=== PATIENT | female | born 1935 | race Two or more races ===

== ENCOUNTER 2017-06-12 13:04 | Emergency (ER) | payer OTHER ==
[~2017-06-12] VITALS: Ht 157.5 cm; Wt 66.2 kg
[~2017-06-12 13:04] MED LIST: CARDIZEM CD240 MG PO; INTESTINEX1 CA1 PO; LEVSIN/SL0.125 MG SL; MACROBID 100 M100 MG PO; PEPCID20 MG PO; PREMARIN42.5 G1 VG; SYNTHROID112 MCG PO; TRENTAL
[2017-06-12] MEDS ORDERED: COZAAR50 MG (13:57)
[2017-06-12] MEDS ORDERED: ZANTAC150 M3 (13:57)
== END 2017-06-12 17:19 | disposition home or self-care (01) ==
LOC: ER 13:04
DX: N39.0 Urinary tract infection, site not specified (principal)

== ENCOUNTER 2018-04-29 14:46 | Emergency (ER) | payer OTHER ==
[~2018-04-29] VITALS: Ht 157.5 cm; Wt 68.9 kg
[~2018-04-29 14:46] MED LIST changes: +COZAAR50 MG; +ZANTAC150 M3
== END 2018-04-29 18:17 | disposition home or self-care (01) ==
LOC: ER 14:46
DX: S00.03XA Contusion of scalp, initial encounter (principal); W18.09XA Striking against other object with subsequent fall, initial encounter; Y93.89 Activity, other specified; Y92.018 Other place in single-family (private) house as the place of occurrence of the external cause; Y99.8 Other external cause status

== ENCOUNTER 2018-05-16 13:43 | Emergency (ER) | payer OTHER ==
[~2018-05-16] VITALS: Ht 162.6 cm; Wt 63.5 kg
[2018-05-17] MEDS ORDERED: INTESTINEX680 M1 PO (02:01)
[2018-05-17] MEDS ORDERED: LEVSIN/SL0.125 MG SL (02:01)
== END 2018-05-17 02:12 | disposition home or self-care (01) ==
LOC: ER 13:43
DX: K52.89 Other specified noninfective gastroenteritis and colitis (principal)

== ENCOUNTER 2018-10-27 19:25 | Emergency (ER) | payer OTHER ==
[~2018-10-27] VITALS: Ht 152.4 cm; Wt 62.6 kg
[~2018-10-27 19:25] MED LIST changes: +INTESTINEX680 M1 PO
[2018-10-27] MEDS ORDERED: CLARITIN10 M1 PO (22:22)
== END 2018-10-27 22:51 | disposition home or self-care (01) ==
LOC: ER 19:25
DX: R06.02 Shortness of breath (principal)

== ENCOUNTER 2021-09-01 16:08 | Emergency (ER) | payer OTHER ==
[~2021-09-01] VITALS: Ht 149.9 cm; Wt 59.0 kg
[~2021-09-01 16:08] MED LIST changes: +CLARITIN10 M1 PO
== END 2021-09-01 22:24 | disposition left against medical advice (07) ==
LOC: ER 16:08
DX: U07.1 COVID-19 (principal); Z88.0 Allergy status to penicillin; Z88.2 Allergy status to sulfonamides

== ENCOUNTER 2021-09-14 17:36 | Emergency (ER) | payer OTHER ==
[~2021-09-14] VITALS: Ht 149.9 cm; Wt 59.0 kg
== END 2021-09-15 01:44 | disposition home or self-care (01) ==
LOC: ER 17:36
DX: M62.830 Muscle spasm of back (principal)

== ENCOUNTER 2022-08-27 17:08 | Emergency (ER) | payer OTHER ==
[~2022-08-27] VITALS: Ht 147.3 cm; Wt 55.3 kg
[2022-08-27] MEDS ORDERED: DICY20TA PO (20:33)
[2022-08-27] MEDS ORDERED: CIPRO500 MG PO (20:33)
[2022-08-27] MEDS ORDERED: PEPCID AC20 MG PO (20:33)
== END 2022-08-27 20:48 | disposition home or self-care (01) ==
LOC: ER 17:08
DX: R10.84 Generalized abdominal pain (principal); Z88.0 Allergy status to penicillin; Z88.2 Allergy status to sulfonamides; I10 Essential (primary) hypertension; E03.9 Hypothyroidism, unspecified; K57.92 Diverticulitis of intestine, part unspecified, without perforation or abscess without bleeding

== ENCOUNTER 2023-08-12 08:18 | Emergency (ER) | payer OTHER ==
[~2023-08-12] VITALS: Ht 157.5 cm; Wt 50.8 kg
[~2023-08-12 08:18] MED LIST changes: +CIPRO500 MG PO; +DICY20TA PO; +PEPCID AC20 MG PO
[2023-08-12] MEDS ORDERED: 0.9 % SODIUM CHLORIDE 500 ML IV STA (08:52)
[2023-08-12 09:25] LABS: HEMATOCRIT 39.4 % (36.0-45.00); HEMOGLOBIN 13.5 g/dL (12.0-15.00); MEAN CELL VOLUME 94.5 fL (80.00-100.00); MEAN CORPUSCULAR HEMOGLOBIN 32.4 pg (27.00-32.0); MEAN CORPUSCULAR HGB CONC 34.3 g/dl (32.0-36.0); PLATELET COUNT 224 K/uL (150-450); RED BLOOD COUNT 4.17 M/uL (4.00-6.00); RED CELL DISTRIBUTION WIDTH 13.9 % (11.5-14.5)
[2023-08-12 10:24] LABS: URINE APPEARANCE Cloudy; URINE BILIRRUBIN Small (NEGATIVE); URINE BLOOD Moderate; URINE COLOR Dark Yellow; URINE GLUCOSE Negative (NEGATIVE); URINE LEUKOCYTE Moderate; URINE NITRATE Negative; URINE PROTEIN 30 (NEGATIVE)
[2023-08-12 10:29] LABS: URINE BACTERIA 728.2 uL (0.0-1933); URINE RBC 161.2 uL (0.0-20.8); URINE WBC 138.2 uL (0.0-23.2)
[2023-08-12 10:55] LABS: URINE MUCUS HEAVY
== END 2023-08-12 14:47 | disposition home or self-care (01) ==
LOC: ER 08:19
PROVIDERS: General Practice
DX: R10.9 Unspecified abdominal pain (principal); M19.90 Unspecified osteoarthritis, unspecified site; Z88.2 Allergy status to sulfonamides; Z88.0 Allergy status to penicillin; N39.0 Urinary tract infection, site not specified
CPT/HCPCS: 36415; 74176; 96365; 96366; 99284; J7042

== ENCOUNTER 2024-02-28 18:04 | Emergency (ER) | payer OTHER ==
[~2024-02-28] VITALS: Ht 152.4 cm; Wt 52.2 kg
[2024-02-28 21:05] LABS: HEMATOCRIT 38.9 % (36.0-45.00); HEMOGLOBIN 13.2 g/dL (12.0-15.00); MEAN CELL VOLUME 95.1 fL (80.00-100.00); MEAN CORPUSCULAR HEMOGLOBIN 32.2 pg (27.00-32.0); MEAN CORPUSCULAR HGB CONC 33.9 g/dl (32.0-36.0); PLATELET COUNT 170 K/uL (150-450); RED BLOOD COUNT 4.09 M/uL (4.00-6.00); RED CELL DISTRIBUTION WIDTH 15.2 % (11.5-14.5)
[2024-02-28 21:27] LABS: CALCIUM 9.3 mg/dL (8.5-10.1); CREATININE SERUM 0.71 mg/dL (0.55-1.02); GFR 77.87; POTASSIUM 3.9 mEq/L (3.5-5.1)
[2024-02-28 21:50] LABS: PH,URINE 5.5 (5.0-8.0); URINE APPEARANCE Clear; URINE BILIRRUBIN Negative (NEGATIVE); URINE BLOOD Moderate; URINE COLOR Yellow; URINE GLUCOSE Negative (NEGATIVE); URINE KETONE Negative (NEGATIVE); URINE LEUKOCYTE Negative; URINE NITRATE Negative; URINE PROTEIN Negative (NEGATIVE)
[2024-02-28 21:53] LABS: URINE BACTERIA 6.1 uL (0.0-1933); URINE EPITHELIAL CELLS 3.1 uL (0.0-38.8); URINE RBC 70.9 uL (0.0-20.8); URINE WBC 8.3 uL (0.0-23.2)
[2024-02-28 21:54] LABS: URINE CAST 0.14 uL (0.0-1.40)
== END 2024-02-28 22:35 | disposition home or self-care (01) ==
LOC: ER 18:06
PROVIDERS: General Practice
DX: N39.0 Urinary tract infection, site not specified (principal); Z88.0 Allergy status to penicillin; Z88.2 Allergy status to sulfonamides; E03.8 Other specified hypothyroidism; I10 Essential (primary) hypertension; Z98.0 Intestinal bypass and anastomosis status; R30.0 Dysuria